=== PATIENT | male | born 1945 | race Caucasian/White ===

== ENCOUNTER 2023-07-29 22:15 | Emergency (ER) | payer OTHER ==
[2023-07-29 23:18] LABS: #Eosinphils 0.5 thou/uL (0.0-0.7); #Monocytes 0.6 thou/uL (0.11-0.59); #Neutrophils 3.6 thou/uL (1.40-6.50); %Basophils 0.5 % (0.0-1.0); %Eosinophils 6.2 % (0.0-10.0); %Lymphocytes 37.5 % (21.0-51.0); %Monocytes 7.4 % (0.0-10.0); %Neutrophils 48.3 % (42.0-75.0); Hematocrit 38.7 % (42.0-52.0); Hemoglobin 12.9 g/dL (14.0-18.0); Mean Corpuscular HGB CONC 33.3 g/dL (32.0-36.0); Mean Corpuscular Hemoglobin 29.8 pg (27.0-31.0); Mean Corpuscular Volume 89.4 fl (78.0-98.0); Mean Platelet Volume 10.2 fL (7.4-10.4); Platelet Count 220 10x3/uL (130-400); RBC Distribution Width 12.3 % (11.5-14.5); Red Blood Cell (RBC) Count 4.33 mill/uL (4.70-6.10); White Blood Cell (WBC) Count 7.4 10x3/uL (4.8-10.8)
[2023-07-29 23:33] LABS: ALT (SGPT) 12 U/L (8-55); AST (SGOT) 22 U/L (5-34); Albumin 4.1 g/dL (3.4-4.8); Alkaline Phosphatase 72 U/L (40-110); Anion Gap 14 mmol/L (10-20); BUN (Urea Nitrogen) 22 mg/dL (8.4-25.7); Bilirubin, Total 0.4 mg/dL (0.2-1.2); Calc. Creatinine Clearance 0 mL/min (70-130); Calcium 9.4 mg/dL (7.8-10.44); Carbon Dioxide 23 mmol/L (23-31); Chloride 106 mmol/L (98-107); Estimated GFR 51; Globulin 2.9 g/dL (2.4-3.5); Glucose 82 mg/dL (83-110); Lipase 110 U/L (8-78); Potassium 3.8 mmol/L (3.5-5.1); Sodium 139 mmol/L (136-145)
[2023-07-29 23:38] LABS: Troponin I 0.015 ng/mL (< 0.028)
[2023-07-30] MEDS ORDERED: Iopamidol-370 76% 500 ML MDV (1 ML CHARGE) ONE (13:39)
== END 2023-07-30 02:36 | disposition home or self-care (01) ==
LOC: ERS 22:15
DX: R10.13 Epigastric pain (principal); I71.40 Abdominal aortic aneurysm, without rupture, unspecified; K85.90 Acute pancreatitis without necrosis or infection, unspecified; I10 Essential (primary) hypertension; E11.9 Type 2 diabetes mellitus without complications; E78.00 Pure hypercholesterolemia, unspecified; Z79.899 Other long term (current) drug therapy
CPT/HCPCS: 36415; 71275; 74174; 80053; 83690; 84484; 85025; 93005; 96360; Q9967

== ENCOUNTER 2023-11-09 08:43 | Outpatient (CLI) | payer OTHER ==
[2023-11-09] MEDS ORDERED: Iopamidol 370 76% 100 ML VIAL ONE (12:34)
== END 2023-11-09 08:44 | disposition home or self-care (01) ==
LOC: BICCT 08:43
PROVIDERS: ATTEND Thoracic Surgery (Cardiothoracic Vascular Surgery)
DX: I71.43 Infrarenal abdominal aortic aneurysm, without rupture (principal); K55.1 Chronic vascular disorders of intestine; I70.1 Atherosclerosis of renal artery; I70.8 Atherosclerosis of other arteries
CPT/HCPCS: 74174; 82565; Q9967

== ENCOUNTER 2023-11-26 08:01 | Outpatient (CLI) | payer OTHER ==
[2023-11-26 09:44] LABS: Hematocrit 39.8 % (38.8-50.0); Hemoglobin 13.3 g/dL (13.5-17.5); Mean Corpuscular HGB CONC 33.4 g/dL (32.0-36.0); Mean Corpuscular Hemoglobin 30.2 pg (27.0-33.0); Mean Corpuscular Volume 90.2 fL (81.2-95.1); Mean Platelet Volume 10.5 fL (7.4-10.4); Platelet Count 166 10x3/uL (150-450); RBC Distribution Width 13.1 % (11.5-14.5); Red Blood Cell (RBC) Count 4.41 10x6/uL (4.32-5.72); White Blood Cell (WBC) Count 7.2 10x3/uL (3.5-10.5)
[2023-11-26 10:18] LABS: Anion Gap 13 mmol/L (10-20); BUN (Urea Nitrogen) 33 mg/dL (8.4-25.7); Calc. Creatinine Clearance 0 mL/min (70-130); Calcium 9.5 mg/dL (7.8-10.44); Carbon Dioxide 24 mmol/L (23-31); Chloride 108 mmol/L (98-107); Estimated GFR 43; Glucose 66 mg/dL (83-110); Potassium 3.9 mmol/L (3.5-5.1); Sodium 141 mmol/L (136-145)
== END 2023-11-26 08:02 | disposition home or self-care (01) ==
LOC: LABBT 08:01
PROVIDERS: ATTEND Thoracic Surgery (Cardiothoracic Vascular Surgery)
DX: Z01.818 Encounter for other preprocedural examination (principal); I71.40 Abdominal aortic aneurysm, without rupture, unspecified
CPT/HCPCS: 71046; 80048; 85027; 93005; 93010

== ENCOUNTER 2023-11-26 08:30 | Inpatient (IN) | payer MEDICARE ==
[2023-11-28] MEDS ORDERED: Heparin 10,000 UNITS/ 10 ML VIAL ONE (06:17)
[2023-11-28] MEDS ORDERED: EPINEPHrine 1 MG/ML VIAL ONE (06:17)
[2023-11-28] MEDS ORDERED: Bupivacaine PF 0.5% 30 ML VIAL ONE (06:17)
[2023-11-28] MEDS ORDERED: Lidocaine 1% MPF 2 ML VIAL ONE (06:25)
[2023-11-28] MEDS ORDERED: Fentanyl 250 MCG/5 ML VIAL ONE (06:35)
[2023-11-28] MEDS ORDERED: PROPOFOL 20 ML ONE (06:35)
[2023-11-28] MEDS ORDERED: Etomidate 40 MG (20 mL) VIAL ONE (06:36)
[2023-11-28] MEDS ORDERED: PHENYLEPHRINE-NS 100 MCG/ML 10 ML SYRINGE ONE (06:36)
[2023-11-28] MEDS ORDERED: Rocuronium Bromide 10 MG/ML (10ML VIAL) ONE (06:36)
[2023-11-28] MEDS ORDERED: Lidocaine 1% PF 5 ML VIAL ONE (06:36)
[2023-11-28] MEDS ORDERED: Sodium Chloride 0.9% 100 ML ONE (07:25)
[2023-11-28] MEDS ORDERED: CEFAZOLIN 2 GM VIAL ONE (07:25)
[2023-11-28] MEDS ORDERED: Glycopyrrolate 0.2 MG/ML 5 ML SYRINGE ONE (08:08)
[2023-11-28] MEDS ORDERED: ePHEDrine Sulfate 50 MG/10 ML VIAL ONE (08:16)
[2023-11-28] MEDS ORDERED: SUGAMMADEX SODIUM 200 MG/2 ML VIAL ONE (09:10)
[2023-11-28] MEDS ORDERED: traMADol HCl 50 MG TAB PO PRN (09:30)
[2023-11-28] MEDS ORDERED: Acetaminophen 325 MG TAB PO PRN (09:30)
[2023-11-28] MEDS ORDERED: traZODone HCl 50 MG TAB PO PRN (09:30)
[2023-11-28] MEDS ORDERED: Ipratropium/Albuterol 3 ML NEB NEB PRN (09:30)
[2023-11-28] MEDS ORDERED: DOPamine 400 MG/D5W 250 ML 250 ML IVPB PRN (09:30)
[2023-11-28] MEDS ORDERED: fentaNYL 50 mcg/mL 1 mL Vial SLOW IVP PRN (09:30)
[2023-11-28] MEDS ORDERED: fentaNYL PF 100 MCG/2 ML SYRINGE ONE ×2 (09:43→10:10)
[2023-11-28] MEDS ORDERED: hydrALAZINE 20 MG/ML VIAL ONE (09:52)
[2023-11-28] MEDS: Sodium Chloride 0.9% 1,000 ML IV SCH (11:12)
[2023-11-28] MEDS: Amlodipine 10 MG TAB PO SCH (11:48)
[2023-11-28] MEDS: hydrALAZINE 20 MG/ML VIAL SLOW IVP PRN (12:01)
[2023-11-28 12:03] VITALS: BP 145/34
[2023-11-28] MEDS: Nitroglycerin 50 MG/250 ML BOT 250 ML IVPB PRN (12:31)
[2023-11-28] MEDS: fentaNYL 50 mcg/mL 1 mL Vial SLOW IVP PRN (13:17)
[2023-11-28] MEDS: traMADol HCl 50 MG TAB PO PRN (14:50)
[2023-11-28] MEDS: CEFAZOLIN 2 GM in Sodium Chloride 0.9% 100 ML IVPB SCH (16:00)
[2023-11-28] MEDS: Gabapentin 300 MG CAP PO PRN (19:10)
[2023-11-28] MEDS: Atorvastatin Calcium 40 MG TAB PO SCH (19:10)
[2023-11-28] MEDS: Prazosin HCl 1 MG CAP PO SCH (20:29)
[2023-11-28] MEDS: Ondansetron PF 4 MG/2 ML Vial IVP PRN (23:30)
[2023-11-29 04:45] LABS: #Basophils Less than 0.03 10x3/uL (0.0-0.2); %Basophils 0.1 % (0.0-1.0); %Eosinophils 1.2 % (0.0-10.0); %Lymphocytes 11.5 % (21.0-51.0); %Monocytes 7.6 % (0.0-10.0); %Neutrophils 79.4 % (42.0-75.0); Hematocrit 30.6 % (42.0-52.0); Hemoglobin 10.2 g/dL (14.0-18.0); Mean Corpuscular HGB CONC 33.3 g/dL (32.0-36.0); Mean Corpuscular Hemoglobin 30.5 pg (27.0-31.0); Mean Corpuscular Volume 91.6 fL (78.0-98.0); Mean Platelet Volume 10.9 fL (7.4-10.4); Platelet Count 118 10x3/uL (130-400); RBC Distribution Width 13.3 % (11.5-14.5); Red Blood Cell (RBC) Count 3.34 mill/uL (4.70-6.10)
[2023-11-29 05:04] LABS: Anion Gap 14 mmol/L (10-20); BUN (Urea Nitrogen) 28 mg/dL (8.4-25.7); Calc. Creatinine Clearance 58 mL/min (70-130); Calcium 8.1 mg/dL (7.8-10.44); Carbon Dioxide 19 mmol/L (23-31); Chloride 107 mmol/L (98-107); Estimated GFR 61; Glucose 138 mg/dL (83-110); Potassium 3.7 mmol/L (3.5-5.1); Sodium 136 mmol/L (136-145)
[2023-11-29 05:34] VITALS: TEMP 98.4
[2023-11-29 05:42] VITALS: BMI 26.9
[2023-11-29] MEDS: glipiZIDE 5 MG TAB PO SCH (07:52)
[2023-11-29] MEDS: Aspirin 81 mg Enteric Coated Tablet PO SCH (09:24)
[2023-11-29] MEDS: Cholecalciferol 1,000 UNITS (25 MCG) TAB PO SCH (09:24)
[2023-11-29] MEDS: Sertraline 25 MG TAB PO SCH (09:24)
[2023-11-30] MEDS ORDERED: Losartan 25 MG TAB PO SCH (09:00)
[2023-11-30] MEDS ORDERED: Amlodipine 10 MG TAB PO SCH (09:00)
== END 2023-11-29 16:00 | disposition home or self-care (01) | DRG 269 ==
LOC: SURG A 11-28 05:59 → CCU 11-28 10:26
PROVIDERS: ADMIT Thoracic Surgery (Cardiothoracic Vascular Surgery); ATTEND Thoracic Surgery (Cardiothoracic Vascular Surgery)
PROC: 04V03EZ Restriction of Abdominal Aorta with Branched or Fenestrated Intraluminal Device, One or Two Arteries, Percutaneous Approach (ICD-10-PCS; principal; 2023-11-28)
DX: I71.40 Abdominal aortic aneurysm, without rupture, unspecified (principal); Z79.899 Other long term (current) drug therapy; E11.9 Type 2 diabetes mellitus without complications; E78.5 Hyperlipidemia, unspecified; I10 Essential (primary) hypertension
CPT/HCPCS: 36416; 80048; 85025; 86850; 86900; 86901; C1769; C1889; J0171; J0360; J0665; J1642; J1644; J2405; J2704; J3010; J3490; J7050

== ENCOUNTER 2023-12-11 10:55 | Inpatient (IN) | payer MEDICARE ==
[2023-12-11] MEDS ORDERED: Atropine Sulfate 1 mg/10 ml Syringe ONE ×3 (11:31→17:40)
[2023-12-11] MEDS ORDERED: Ondansetron PF 4 MG/2 ML Vial ONE ×2 (11:31→12:26)
[2023-12-11 11:40] LABS: #Basophils Less than 0.03 10x3/uL (0.0-0.2); #Eosinphils Less than 0.03 10x3/uL (0.0-0.7); %Basophils 0.2 % (0.0-1.0); %Lymphocytes 12.4 % (21.0-51.0); %Monocytes 4.5 % (0.0-10.0); %Neutrophils 82.3 % (42.0-75.0); Hematocrit 38.7 % (42.0-52.0); Hemoglobin 12.1 g/dL (14.0-18.0); Mean Corpuscular HGB CONC 31.3 g/dL (32.0-36.0); Mean Corpuscular Hemoglobin 30.1 pg (27.0-31.0); Mean Corpuscular Volume 96.3 fL (78.0-98.0); Mean Platelet Volume 11.3 fL (7.4-10.4); Platelet Count 290 10x3/uL (130-400); RBC Distribution Width 14.8 % (11.5-14.5); Red Blood Cell (RBC) Count 4.02 mill/uL (4.70-6.10)
[2023-12-11] MEDS ORDERED: fentaNYL 50 mcg/mL 1 mL Vial ONE (11:47)
[2023-12-11 12:12] LABS: ALT (SGPT) 791 U/L (8-55); AST (SGOT) 998 U/L (5-34); Albumin 3.4 g/dL (3.4-4.8); Alkaline Phosphatase 69 U/L (40-110); Anion Gap 32 mmol/L (10-20); BUN (Urea Nitrogen) 70 mg/dL (8.4-25.7); Calc. Creatinine Clearance 0 mL/min (70-130); Carbon Dioxide 10 mmol/L (23-31); Chloride 101 mmol/L (98-107); Estimated GFR 17; Globulin 3.6 g/dL (2.4-3.5); Glucose 130 mg/dL (83-110); Lipase 37 U/L (8-78); Potassium 4.4 mmol/L (3.5-5.1); Sodium 139 mmol/L (136-145)
[2023-12-11 12:14] LABS: INR-International Normal Ratio 1.6; PTT 30.2 sec (22.9-36.1); Prothrombin Time 18.9 sec (12.0-14.7)
[2023-12-11] MEDS ORDERED: Iopamidol-370 76% 500 ML MDV (1 ML CHARGE) ONE (12:18)
[2023-12-11 12:23] LABS: Troponin I 3.343 ng/mL (< 0.028)
[2023-12-11] MEDS ORDERED: Morphine 4 MG/ML VIAL ONE ×2 (12:25→13:31)
[2023-12-11] MEDS ORDERED: Heparin 25,000 units/D5W 500 ML ONE (12:37)
[2023-12-11] MEDS ORDERED: Piperacillin/Tazobactam 4.5 GM VIAL ONE (12:37)
[2023-12-11] MEDS ORDERED: Heparin 5,000 UNITS/ML VIAL ONE (12:37)
[2023-12-11] MEDS ORDERED: Sodium Chloride 0.9% 100 ML ONE (12:37)
[2023-12-11] MEDS ORDERED: Aspirin 325 MG TAB ONE (12:47)
[2023-12-11] MEDS ORDERED: Sodium Bicarb 50 MEQ/50 ML Abboject 8.4% SYRINGE ONE ×2 (13:41→17:40)
[2023-12-11 13:51] LABS: Actual Bicarbonate (HCO3a) 16.4 mEq/L (22-28); Analyzer IN Cardio ER; Base Excess (BEa) -6.1 mEq/L (-2.0 to +3.0); Calcium, Ionized (arterial) 0.93 mmol/L (1.12-1.30); Carboxyhemoglobin (COHb) 0.2 gm% (0.0-3.0); Hematocrit-ABG 30 % (42.0-52.0); Hemoglobin (Hb) 10.3 g/dL (14.0-18.0); O2 Tension (PaO2), arterial 150.6 mmHg (> 70.0); Potassium - ABG Lab 4.11 mmol/L (3.70-5.30); pH, Arterial 7.455 (7.35-7.45)
[2023-12-11 13:56] LABS: ALV-art Gradient 76.205 mmHg (0-20); CO2 Tension 23.9 mmHg (35.0-45.0); Puncture Site RRA
[2023-12-11] MEDS ORDERED: Electrolyte Replacement Protocol 1 EACH IVPB PRN (14:29)
[2023-12-11] MEDS ORDERED: Acetaminophen 325 MG (10.15 ML) UDCUP PO PRN (14:29)
[2023-12-11] MEDS ORDERED: Acetaminophen 650 MG/20.3 ML UDCUP PO PRN (14:37)
[2023-12-11] MEDS ORDERED: Sodium Chloride 0.9% 1,000 ML IV SCH (14:45)
[2023-12-11] MEDS: NOREPINEPHRINE 8 MG/250 ML-D5W 250 ML IVPB SCH (15:45)
[2023-12-11] MEDS: Sodium Bicarbonate 150 mEq in Dextrose 5% IV SCH (15:55)
[2023-12-11] MEDS: Vancomycin (BATCH) 1.5 GM in Premix 1 BAG IVPB SCH (15:57)
[2023-12-11] MEDS: Albumin 5% 25 GM (500 mL) BOT IVPB SCH (16:02)
[2023-12-11] MEDS: Acetaminophen 325 MG TAB PO SCH (16:04)
[2023-12-11] MEDS: Sodium Chloride 0.45% 500 ML IV SCH (16:04)
[2023-12-11] MEDS: DOBUTamine 500 mg/250 ml 250 ML IVPB SCH (16:15)
[2023-12-11] MEDS: Calcium Chloride 1 GM/10 ML Abboject SYRINGE IVP SCH (16:17)
[2023-12-11] MEDS: EPINEPHrine 1 MG/10 ML Abboject SYRINGE IVP SCH ×2 (16:56→16:59)
[2023-12-11] MEDS: Atropine Sulfate 1 mg/10 ml Syringe IVP SCH (17:00)
[2023-12-11 17:21] LABS: Base Excess (BEa) -27.8 mEq/L (-2.0 to +3.0); Carboxyhemoglobin (COHb) 0.3 gm% (0.0-3.0); Hematocrit-ABG 28 % (42.0-52.0); Hemoglobin (Hb) 9.6 g/dL (14.0-18.0); O2 Tension (PaO2), arterial 566.2 mmHg (> 70.0); Potassium - ABG Lab 4.38 mmol/L (3.70-5.30)
[2023-12-11 17:23] LABS: Actual Bicarbonate (HCO3a) 3.5 mEq/L (22-28); CO2 Tension 18.6 mmHg (35.0-45.0); pH, Arterial 6.894 (7.35-7.45)
[2023-12-11] MEDS: Sodium Bicarb 50 mEq/50 ML VIAL IVP SCH (17:27)
[2023-12-11] MEDS: Vecuronium 10 MG VIAL IV SCH (17:35)
[2023-12-11] MEDS: Lorazepam 2 MG/ML VIAL SLOW IVP SCH (17:38)
[2023-12-11] MEDS ORDERED: EPINEPHrine 1 MG/ML AMP ONE (17:40)
[2023-12-11] MEDS ORDERED: Atropine Sulfate 1 mg/10 ml Syringe IVP SCH (18:00)
[2023-12-11] MEDS ORDERED: NOREPINEPHRINE 8 MG/250 ML-D5W 250 ML IVPB SCH (18:00)
[2023-12-11 18:04] LABS: Lactic Acid 21.6 mmol/L (0.5-2.2)
[2023-12-11] MEDS: Sodium Bicarb 50 MEQ/50 ML Abboject 8.4% SYRINGE ONE (18:38)
[2023-12-11] MEDS: Lorazepam 2 MG/ML VIAL ONE (18:40)
[2023-12-11 18:44] VITALS: BMI 28.1
[2023-12-11] MEDS ORDERED: Vancomycin Dose by Levels Sliding Scale (Wt 71-99) FS SCH (19:00)
[2023-12-11] MEDS: Vecuronium 10 MG VIAL ONE (19:12)
[2023-12-11] MEDS: DOBUTamine 500 mg/250 ml 250 ML ONE (19:14)
[2023-12-11] MEDS: Cefepime 2 GM in Sodium Chloride 0.9% 100 ML IVPB SCH (19:17)
[2023-12-11] MEDS: EPINEPHrine 4 MG in Dextrose 5% in Water 250 ML IVP SCH (20:03)
[2023-12-11] MEDS: Sodium Bicarbonate 150 MEQ in Dextrose 5% in Water 1,000 ML IV SCH (20:04)
[2023-12-11] MEDS: Famotidine/PF 20 mg/2ml Vial SLOW IVP SCH (20:08)
[2023-12-11] MEDS ORDERED: Vancomycin 2 GM in Sodium Chloride 0.9% 500 ML IVPB SCH (21:00)
[2023-12-11 21:11] VITALS: TEMP 94.7
[2023-12-11] MEDS: Hydrocortisone Sod Succ/PF 250 mg/2 ml Vial SLOW IVP SCH (21:24)
[2023-12-12] MEDS ORDERED: Cefepime 1 GM in Sodium Chloride 0.9% 100 ML IVPB SCH (18:00)
== END 2023-12-12 03:30 | disposition expired | DRG 871 ==
LOC: ERS 10:55 → CCU 15:46
PROVIDERS: ADMIT Internal Medicine; ATTEND Internal Medicine
PROC: 0BH17EZ Insertion of Endotracheal Airway into Trachea, Via Natural or Artificial Opening (ICD-10-PCS; principal; 2023-12-11)
PROC: 06HY33Z Insertion of Infusion Device into Lower Vein, Percutaneous Approach (ICD-10-PCS; 2023-12-11)
PROC: 4A133R1 Monitoring of Arterial Saturation, Peripheral, Percutaneous Approach (ICD-10-PCS; 2023-12-11)
PROC: 3E03329 Introduction of Other Anti-infective into Peripheral Vein, Percutaneous Approach (ICD-10-PCS; 2023-12-11)
PROC: 3E033XZ Introduction of Vasopressor into Peripheral Vein, Percutaneous Approach (ICD-10-PCS; 2023-12-11)
PROC: 30233J1 Transfusion of Nonautologous Serum Albumin into Peripheral Vein, Percutaneous Approach (ICD-10-PCS; 2023-12-11)
PROC: 5A1935Z Respiratory Ventilation, Less than 24 Consecutive Hours (ICD-10-PCS; 2023-12-11)
DX: A41.9 Sepsis, unspecified organism (principal); I21.4 Non-ST elevation (NSTEMI) myocardial infarction; K55.069 Acute infarction of intestine, part and extent unspecified; Z66 Do not resuscitate; K72.00 Acute and subacute hepatic failure without coma; R65.21 Severe sepsis with septic shock; N17.9 Acute kidney failure, unspecified; E87.20 Acidosis, unspecified; K81.0 Acute cholecystitis; I13.0 Hypertensive heart and chronic kidney disease with heart failure and stage 1 through stage 4 chronic kidney disease, or unspecified chronic kidney disease; I50.9 Heart failure, unspecified; E78.5 Hyperlipidemia, unspecified; R74.01 Elevation of levels of liver transaminase levels; E78.00 Pure hypercholesterolemia, unspecified; N18.9 Chronic kidney disease, unspecified; E11.22 Type 2 diabetes mellitus with diabetic chronic kidney disease; Z91.013 Allergy to seafood; Z79.82 Long term (current) use of aspirin; Z79.84 Long term (current) use of oral hypoglycemic drugs; Z98.890 Other specified postprocedural states; Z87.891 Personal history of nicotine dependence; D63.1 Anemia in chronic kidney disease
CPT/HCPCS: 36415; 36416; 36600; 71045; 71275; 74174; 76705; 80053; 82533; 82805; 83605; 83690; 83880; 84484; 85025; 85610; 85730; 86850; 86900; 86901; 87040; 93005; 93010; 93306; 94002; 94760; 96374; 96375; 96376; J0171; J0461; J0692; J1250; J1644; J1720; J2060; J2270; J2405; J2543; J3010; J3370; J3490; J7070; P9045; Q9967; S0028